=== PATIENT | female | born 1990 | race Caucasian/White ===

== ENCOUNTER 2017-10-14 20:13 | Emergency (ER) | payer MEDICAID ==
[~2017-10-14] VITALS: Ht 152.4 cm; Wt 149.2 kg
[2017-10-14 20:16] VITALS: BP 160/100
[2017-10-14 20:46] LABS: BASOPHILS # (AUTO) 0.06 x10^3/uL (0-0.1); BASOPHILS % (AUTO) 1 % (0-1); EOSINOPHILS # (AUTO) 0.35 x10^3/uL (0-0.4); EOSINOPHILS % (AUTO) 3 % (1-7); LYMPHOCYTES # (AUTO) 3.35 x10^3/uL (1-3.4); LYMPHOCYTES % (AUTO) 29 % (22-44); MD NO; MEAN CORPUSCULAR HEMOGLOBIN 30.2 pg (27.0-34.8); MEAN CORPUSCULAR HGB CONC 33.3 g/dL (32.4-35.8); MEAN CORPUSCULAR VOLUME 90.9 fL (80-100); MEAN PLATELET VOLUME 9.2 fL (7.4-10.4); MONOCYTES # (AUTO) 0.43 x10^3/uL (0.2-0.8); MONOCYTES % (AUTO) 4 % (2-9); NEUTROPHILS # (AUTO) 7.52 x10^3/uL (1.8-6.8); NEUTROPHILS % (AUTO) 64 % (42-75); PLATELET COUNT 314 x10^3/uL (130-400); RED BLOOD COUNT 4.04 x10^6/uL (3.82-5.3)
[2017-10-14 20:59] LABS: ALBUMIN 3.3 g/dL (3.4-5.0); ANION GAP 7 mmol/L (5-15); CALCIUM 8.9 mg/dL (8.5-10.1); CHLORIDE 105 mmol/L (98-107); CREATININE 1.03 mg/dL (0.55-1.02)
[2017-10-14] MEDS ORDERED: HYDROmorphone 2 MG/ML, 1ML ONE (21:45)
== END 2017-10-14 21:53 | disposition home or self-care (01) ==
LOC: ED 21:05
DX: O20.0 Threatened abortion (principal)
CPT/HCPCS: 36415; 76801; 80048; 82040; 84702; 85025; 86901; 99285

== ENCOUNTER 2017-10-17 05:53 | Emergency (ER) | payer MEDICAID ==
[~2017-10-17] VITALS: Ht 152.4 cm; Wt 149.5 kg
[2017-10-17] MEDS ORDERED: LEVOTHYROXINE (06:14)
[2017-10-17 06:46] LABS: BASOPHILS # (AUTO) 0.05 x10^3/uL (0-0.1); BASOPHILS % (AUTO) 1 % (0-1); EOSINOPHILS # (AUTO) 0.35 x10^3/uL (0-0.4); EOSINOPHILS % (AUTO) 3 % (1-7); LYMPHOCYTES # (AUTO) 2.71 x10^3/uL (1-3.4); LYMPHOCYTES % (AUTO) 27 % (22-44); MD NO; MEAN CORPUSCULAR HEMOGLOBIN 30.2 pg (27.0-34.8); MEAN CORPUSCULAR HGB CONC 33.6 g/dL (32.4-35.8); MEAN CORPUSCULAR VOLUME 89.7 fL (80-100); MEAN PLATELET VOLUME 9.7 fL (7.4-10.4); MONOCYTES % (AUTO) 1 % (2-9); NEUTROPHILS # (AUTO) 6.85 x10^3/uL (1.8-6.8); NEUTROPHILS % (AUTO) 68 % (42-75); PLATELET COUNT 241 x10^3/uL (130-400); RED BLOOD COUNT 4.17 x10^6/uL (3.82-5.3); RED CELL DISTRIBUTION WIDTH 13.6 % (9.6-15.2)
[2017-10-17 07:38] LABS: MICROSCOPIC AUTO
[2017-10-17 07:39] LABS: CULTURE INDICATED? NO
[2017-10-17 09:11] VITALS: BP 148/88
== END 2017-10-17 09:34 | disposition home or self-care (01) ==
LOC: ED 06:43
DX: O03.4 Incomplete spontaneous abortion without complication (principal); O99.211 Obesity complicating pregnancy, first trimester; Z3A.09 9 weeks gestation of pregnancy
CPT/HCPCS: 36415; 76801; 81001; 84702; 85025; 99285